=== PATIENT | male | born 1980 | race Hispanic/Latino ===

== ENCOUNTER 2018-05-24 00:39 | Emergency (ER) | payer OTHER ==
[~2018-05-24] VITALS: Ht 177.8 cm; Wt 86.2 kg
[~2018-05-24 00:39] MED LIST: LEVAQUIN750 MG PO; LORTAB 7.5-5001 EACH PO
== END 2018-05-24 02:58 | disposition left against medical advice (07) ==
LOC: ER 00:39
DX: R42 Dizziness and giddiness (principal)
CPT/HCPCS: 93005